=== PATIENT | female | born 1970 | race Caucasian/White ===

== ENCOUNTER → 2020-09-29 | Outpatient (CLI) | payer BC, OTHER ==
[2020-09-30 13:14] LABS: ESTRADIOL 7.3 pg/mL (.); FSH, SERUM 88.1 mIU/mL (.)
[2020-10-01 07:10] LABS: VITAMIN D, 25-HYDROXY 23.9 ng/mL (30.0-100.0)
[2020-10-01 19:12] LABS: TESTOSTERONE, SERUM 10 ng/dL (3-41)
== END ==
LOC: LAB 11:36
PROVIDERS: Nurse Practitioner Family
DX: N91.2 Amenorrhea, unspecified (principal); R23.2 Flushing
CPT/HCPCS: 36415; 82627; 82670; 83001; 83002; 84402; 84403; 84439; 84443

== ENCOUNTER → 2021-02-18 | Outpatient (CLI) | payer BC, OTHER | LOC: ECHO 10:30 → HEART 5 11:30 | DX: R00.2 Palpitations (principal); R00.0 Tachycardia, unspecified | CPT/HCPCS: ECHO; 93306 ==

== ENCOUNTER → 2021-03-17 | Outpatient (CLI) | payer BC ==
[2021-03-17 12:04] LABS: HEMOGLOBIN 14.1 gm/dl (12.3-15.3); RED BLOOD COUNT 4.87 M/UL (4.00-5.10)
[2021-03-17 14:34] LABS: BUN/CREATININE RATIO 22 (0-10)
== END ==
LOC: LAB 11:33
PROVIDERS: Internal Medicine
DX: R41.3 Other amnesia (principal); E55.9 Vitamin D deficiency, unspecified; I10 Essential (primary) hypertension
CPT/HCPCS: 36415; 80048; 80061; 80076; 82607; 84443; 85025

== ENCOUNTER → 2021-10-14 | Outpatient (CLI) | payer BC ==
[2021-10-14 09:39] LABS: HEMOGLOBIN 13.8 gm/dl (12.3-15.3); RED BLOOD COUNT 4.78 M/UL (4.00-5.10); WHITE BLOOD COUNT 5.8 K/UL (4.5-11.0)
[2021-10-15 08:14] LABS: ALBUMIN 4.3 g/dL (3.8-4.9); ALKALINE PHOSPHATASE 90 IU/L (44-121); ALT (SGPT) 25 IU/L (0-32); AST (SGOT) 27 IU/L (0-40); BILIRUBIN, DIRECT 0.14 mg/dL (0.00-0.40); BILIRUBIN, TOTAL 0.5 mg/dL (0.0-1.2); BUN 15 mg/dL (6-24); BUN/CREATININE RATIO 18 (9-23); CALCIUM, SERUM 9.8 mg/dL (8.7-10.2); CARBON DIOXIDE, TOTAL 21 mmol/L (20-29); CHLORIDE, SERUM 105 mmol/L (96-106); CHOLESTEROL, TOTAL 232 mg/dL (100-199); CREATININE, SERUM 0.83 mg/dL (0.57-1.00); EGFR IF AFRICN AM 94 (>59); EGFR IF NONAFRICN AM 81 (>59); GLUCOSE, SERUM 92 mg/dL (65-99); HDL CHOLESTEROL 63 mg/dL (>39); LDL CHOLESTEROL CALC 152 mg/dL (0-99); LDL/HDL RATIO 2.4 ratio (0.0-3.2); POTASSIUM, SERUM 4.3 mmol/L (3.5-5.2); PROTEIN, TOTAL 7.1 g/dL (6.0-8.5); SODIUM, SERUM 141 mmol/L (134-144); T. CHOL/HDL RATIO 3.7 ratio (0.0-4.4); TRIGLYCERIDES 95 mg/dL (0-149)
== END ==
LOC: LAB 08:58
PROVIDERS: Internal Medicine
DX: I10 Essential (primary) hypertension (principal)
CPT/HCPCS: 80048; 80061; 80076; 84443; 85025

== ENCOUNTER → 2021-10-28 | Outpatient (CLI) | payer BC | LOC: EXRD 10:07 | DX: E04.1 Nontoxic single thyroid nodule (principal) | CPT/HCPCS: 76536 ==

== ENCOUNTER → 2021-12-08 | Outpatient (CLI) | payer BC | LOC: EXRD 11:06 | DX: R05.9 Cough, unspecified (principal) | CPT/HCPCS: 71046 ==